=== PATIENT | male | born 1965 | race Caucasian/White ===

== ENCOUNTER → 2017-08-26 | Outpatient (CLI) | payer BC, OTHER ==
--- NOTE | 2017-08-26 11:13 | RAD ---
EXAM: Right upper quadrant ultrasound. HISTORY: Elevated liver enzymes COMPARISON: 11/18/2015. FINDINGS: Sonographic evaluation of the right upper quadrant was performed. Mild diffuse hepatic steatosis is suspected. A cyst in the left hepatic lobe measures 2.7 x 2.3 cm. Another tiny cyst in the right lobe measures 9 x 5 mm. A 3rd measures 9 x 7 mm. There are no clearly suspicious lesions. The gallbladder is unremarkable without evidence of stones, wall thickening or pericholecystic fluid. There is no sonographic Lopes sign. The common duct measures 4 mm. The visualized portions of the head and body of the pancreas reveal no abnormality. The right kidney measures 12.8 cm. Cortical thickness and echogenicity are preserved. There is no hydronephrosis. The visualized portions of the abdominal aorta and inferior vena cava are grossly patent and normal in caliber. IMPRESSION: 1. Suspect mild diffuse hepatic steatosis. 2. Small hepatic cysts appear stable and benign.
== END | disposition home or self-care (01) ==
LOC: US 08:50
PROVIDERS: ATTEND Family Medicine
DX: R94.5 Abnormal results of liver function studies (principal); K76.89 Other specified diseases of liver
CPT/HCPCS: 76705

== ENCOUNTER → 2018-07-14 | Outpatient (CLI) | payer BC ==
--- NOTE | 2018-07-14 11:12 | RAD ---
Right upper quadrant abdominal ultrasound, 07/14/2018: HISTORY: Elevated liver enzymes The gallbladder is within normal limits in size. There is no sonographic evidence of cholelithiasis. The gallbladder wall is not thickened. The common hepatic duct is not dilated. The liver demonstrates increased echogenicity in a diffuse pattern. This is most commonly due to fatty change. There are least 5 small hypoechoic lesions in the liver. The largest of these measures 3.3 cm and demonstrates posterior acoustic enhancement in a pattern compatible with a cyst. Several other smaller lesions also demonstrates cystic characteristics. There are couple of tiny subcentimeter lesions which are too small to definitively characterize but are also probably cysts. The pancreas was obscured by overlying bowel. There is a 1.2 cm cortical right renal cyst. The right kidney is otherwise unremarkable. IMPRESSION: 1. No significant gallbladder abnormality is detected. 2. Increased hepatic echogenicity compatible with fatty change. 3. Right renal and hepatic cysts. Electronically signed by: Ty Liang MD (07/14/2018 11:07 AM) [facility]
== END | disposition home or self-care (01) ==
LOC: US 07:29
PROVIDERS: ATTEND Family Medicine
DX: K76.89 Other specified diseases of liver (principal); N28.1 Cyst of kidney, acquired
CPT/HCPCS: 76705

== ENCOUNTER → 2018-08-25 | Outpatient (CLI) | payer BC ==
--- NOTE | 2018-08-25 10:30 | RAD ---
Renal ultrasound, 08/25/2018: HISTORY: Follow-up renal cyst The right kidney measures 12.1 cm in length while left kidney measures 12.7 cm. There is no evidence of hydronephrosis. A 1.7 cm simple cyst is seen laterally in the mid right kidney. This was not clearly visualized on the 07/14/2018 exam, probably due to technical factors. There is a 1.1 cm cortical nodule arising from the lower pole the right kidney compatible with an additional cyst. This smaller nodule is unchanged since 07/14/2018. No left renal mass is seen. Limited views of urinary bladder show no abnormality. IMPRESSION: 1. Small right renal cysts. 2. The kidneys are otherwise unremarkable. Electronically signed by: Ty Liang MD (08/25/2018 10:27 AM) [facility]
== END | disposition home or self-care (01) ==
LOC: US 08:50
PROVIDERS: ATTEND Nurse Practitioner Family
DX: N28.1 Cyst of kidney, acquired (principal); N28.89 Other specified disorders of kidney and ureter
CPT/HCPCS: 76770